=== PATIENT | female | born 1990 | race Caucasian/White ===

== ENCOUNTER 2017-11-03 22:46 | Emergency (ER) | payer OTHER ==
[~2017-11-03 22:46] MED LIST: DILAUDID2 M1 PO; MAGIC BULLET10 MG PO; MEDROL4 M2 PO; MIRENA1 EACH; PERCOCET 5-3251 EACH PO; PREDNISONE 10MG10 MG PO; ZITHROMAX Z-PA250 M1 PO; ZOFRAN ODT4 M1 SL; magic mouthwash PO
--- NOTE | 2017-11-03 23:40 | RADIOLOGY REPORT ---
EXAMINATION: XR TOES, LEFT CLINICAL INFORMATION: Pain left fourth toe. COMPARISON: None TECHNIQUE: 3 views of the left toes were obtained. FINDINGS: There is an oblique fracture of the distal diaphyseal shaft of the proximal phalanx of the fourth toe. Fracture is minimally displaced. There is a fracture line that approaches and possibly crosses the articular surface of the bone at the PIP joint. No dislocation. IMPRESSION: Minimally displaced fracture of the proximal phalanx of the fourth toe.
--- NOTE | 2017-11-03 23:57 | ED ANKLE/FOOT INJURY COMPLAINT ---
History of Present Illness General Chief Complaint: Foot or Ankle Injury Stated Complaint: "THINK I BROKE MY TOE" PER PT Source: patient, old records Exam Limitations: no limitations Vital Signs & Intake/Output Vital Signs & Intake/Output Vital Signs Date Time Temp Pulse Resp B/P B/P Pulse O2 O2 Flow FiO2 Mean Ox Delivery Rate 11/04 0015 97.0 78 18 120/80 96 Room Air 11/03 2251 80 20 124/84 99 Allergies Coded Allergies: Penicillins (HIVES 08/27/17) Reconcile Medications Hydromorphone HCl (Dilaudid) 2 MG TABLET 1 TAB PO BIDP PRN pain Levonorgestrel (Mirena) 20 MCG/24 HOUR (5 YEARS) IUD CONTROL (Reported) Ondansetron (Zofran Odt) 4 MG TAB.RAPDIS 1 TAB SL TID nausea Ondansetron (Zofran Odt) 4 MG TAB.RAPDIS 1 TAB SL Q6P PRN NAUSEA/VOMITING Oxycodone HCl/Acetaminophen (Percocet 5-325 MG Tablet) 5 MG-325 MG TABLET 1-2 TAB PO Q6P PRN PAIN Oxycodone HCl/Acetaminophen (Percocet 5-325 MG Tablet) 5 MG-325 MG TABLET 1 TAB PO BID PRN pain Triage Note: PER PT KICKED CRUTCH WITH L 4TH TOE THINK IT IS BROKEN DOES NOT GET MENSES HAS A BOOT ON RT FOOOT SINCE AUGUST FOR SHATTERED BONE Triage Nurses Notes Reviewed? yes Occurred: just prior to arrival Duration: hour(s): (1), constant Timing: recent history Severity: moderate Severity Numbers: 6 Pain/Injury Location: Left: 4th toe. Method of Injury: direct blow No Modifying Factors: none Associated Symptoms: denies : No Patient currently breastfeeds: No HPI: 26-year-old female presents to ER for evaluation complaining of left fourth toe pain after she she states she kicked her crutches with her toe sustaining injury. She's had difficulty with weightbearing on the toe and worse with palpation since injury. She is not taken anything for symptoms. No numbness no tingling. She denies any other toe pain foot pain or ankle pain. No modifying factors or associated symptoms otherwise. Past History Travel History Traveled to [place] past 21 day No Medical History Any Pertinent Medical History? none Neurological: NONE EENT: NONE Cardiovascular: NONE Respiratory: NONE Gastrointestinal: NONE Hepatic: NONE Renal: NONE Musculoskeletal: NONE Psychiatric: NONE Endocrine: NONE Blood Disorders: NONE Cancer(s): NONE [employer]ODUCT INSPECTION/Reproductive: NONE Tetanus Vaccine: 11/10/12 Surgical History Surgical History: TONSILS Psychosocial History What is your primary language Polish Tobacco Use: Never used Family History Hx Contributory? No Review of Systems Review of Systems Constitutional: Reports: see HPI. Comments Review of systems: See HPI, All other systems negative. Constitutional, no chills no fever HEENT: no sore throat no congestion Cardiovascular: No chest pain Skin: no rashes, no change in skin Respiratory: No dyspnea no cough no sputum GI: No nausea no vomiting, Muscle skeletal: joint pain, no back pain Neurologic: , no headache Heme/endocrine: No bruising Immunology: No lymphadenopathy Physical Exam Physical Exam General Appearance: well developed/nourished, no apparent distress, alert, awake , comfortable Leg/Knee/Thigh Left: normal range of motion Comments: Well-developed well-nourished patient in no apparent distress. HEENT: Atraumatic, extraocular motion intact Neck: Supple, FROM Back: FROM Respiratory: No respiratory distress. Patient speaking in full complete sentences. Breath sounds clear to auscultation bilaterally: NO W/R/R upper Extremities: full range of motion lower extremtiies: from of the foot and ankle, no obv deformity to the left 4th toe, the other toes are atraumatic, no ecchymosis, cap refill wnl. full sensation noted to all toes Neuro: awake, alert, and oriented to person, place and time. There were no obvious focal neurologic abnormalities. Skin: Warm & dry;No appreciable rash on exposed skin Psych: Mood affect normal, normal memory normal judgment. Progress Differential Diagnosis: fracture, dislocation, sprain, contusion Plan of Care: I discussed with the patient at length all of their results. I had an extensive conversation regarding need for close follow up with their primary care physician/ortho this week as well as return precautions. I answered all of their questions, they feel comfortable with the plan and follow-up care. I discussed with the patient/family the medications that they will receive. I gave them signs and symptoms that could indicate an adverse reaction. I have advised them to limit their activities until they can see how they respond to the medication. Diagnostic Imaging: Viewed by Me: Radiology Read. Discussed w/RAD: Radiology Read. Departure Departure Time of Disposition: 0000 Disposition: HOME OR SELF CARE Condition: Stable Clinical Impression Primary Impression: Toe fracture Referrals: Patient Has No Primary Care Dr (PCP/Family) Additional Instructions: Rest ice Tylenol Motrin for pain. Percocet for breakthrough pain this is a narcotic and highly addictive. No driving or drinking alcohol while taking. Departure Forms: Customer Survey General Discharge Information Prescriptions: Current Visit Scripts Oxycodone HCl/Acetaminophen (Percocet 5-325 MG Tablet) 1 TAB PO BID PRN pain #10 TAB
[2017-11-04] MEDS ORDERED: PERCOCET 5-3251 EACH PO (00:01)
[2017-11-04 00:15] VITALS: BP 120/80
== END 2017-11-04 00:17 ==
LOC: ERH 22:46
DX: S92.502A Displaced unspecified fracture of left lesser toe(s), initial encounter for closed fracture (principal); W23.0XXA Caught, crushed, jammed, or pinched between moving objects, initial encounter; Y92.9 Unspecified place or not applicable; Y93.9 Activity, unspecified
CPT/HCPCS: 73660-LT

== ENCOUNTER → 2018-06-30 | Day surgery (SDC) | payer OTHER ==
[~2018-06-30] VITALS: Ht 180.3 cm; Wt 104.3 kg
--- NOTE | 2018-06-30 16:51 | Operative Report ---
Operative/Inv Procedure Report Surgery Date: 06/30/18 Name of Procedure: Right ankle arthroscopy, extensive debridement, chondroplasty, removal of deep implanted hardware Pre-Operative Diagnosis: Right ankle pain after open reduction internal fixation Post-Operative Diagnosis: Right ankle painful hardware, postoperative ankle joint scarring Estimated Blood Loss: scant Surgeon/Director Special Education: Noam Wahl MD Anesthesia: laryngeal mask airway, block Complications: None Condition: Stable to PACU Operative Indication: This is a 27-year-old female with an ankle fracture dislocation that was fixed operatively. She healed well however had persistent pain postoperatively. Risks and benefits of the procedure were discussed with the patient at length. Risks include but are not limited to nerve damage, muscle damage, infection, blood loss, blood clots, pulmonary embolus, and even . The patient agreed to the above risks and elected to proceed with surgery. Operative/Procedure Note Note: The patient was placed supine on the operating room table. A tourniquet was applied. The lower extremity was prepped and draped in the normal sterile fashion. A timeout was performed before the incision. The site marking was visualized before incision. After the leg was prepped and draped, an Esmarch was used to exsanguinate the extremity. The tourniquet was inflated. The spinal needle was used to insufflate the ankle with saline medial to the tibialis anterior tendon. An 11 blade was used to incise a skin. A curved clamp was then inserted with the ankle in dorsiflexion to protect the articular surface. The curved clamp was brought laterally and used to localize the placement of a lateral portal. Traction was applied to the fourth toe to identify the superficial peroneal nerve branch. Care was taken to protect the nerve from the incision. Next a cannula was placed to the medial portal. The camera was inserted. The diagnostic arthroscopy was then performed. A shaver was used to debride extensive scarring in the medial gutter, lateral gutter, and anterior compartment. Chondroplasty was then performed of the anterior talus. The previous medial incision site incised again. Dissection was performed down to the bone. The parallel screws were then removed. The screw holes were curetted. The wound was irrigated. The lateral incision site was incised. Incision was carried down to the bone. The plate and screws were removed. The screw holes were curetted. The wound was copiously irrigated. The fascia was closed with 0 Vicryl suture. The skin was closed with 2-0 Vicryl suture and a 3-0 nylon in a horizontal mattress fashion. The portal sites were closed with 3-0 nylon suture in a simple interrupted fashion. A dry sterile dressing was applied and the patient was transferred to PACU in stable condition. Findings: Extensive scarring in the anterior compartment, medial gutter, and lateral gutter. Grade 3 chondral defect over the anterior talus and a grade 4 chondral defect over the medial malleolus.
== END ==
LOC: STS 01:44
DX: T84.84XA Pain due to internal orthopedic prosthetic devices, implants and grafts, initial encounter (principal); L90.5 Scar conditions and fibrosis of skin; M77.50 Other enthesopathy of unspecified foot and ankle
CPT/HCPCS: 81025; J0131; J2250; J2405